=== PATIENT | female | born 1995 | race Caucasian/White ===

== ENCOUNTER 2016-11-28 20:02 | Emergency (ER) | payer MEDICAID ==
[~2016-11-28 20:02] MED LIST: ABILIFY15 MG PO; ABILIFY20 MG; ALLERGY MEDICATION; COMPAZINE10 MG PO; DEPO-PROVE150 MG/11 IM; DEPO-PROVER150 MG/ML IM; FISH OIL 11000 MG/CA PO; FLONASE16 G2 NS; HYDROCODON-ACE1 EA16 PO; IRON325 MG PO; KEFLEX500 MG PO; LAMICTAL25 MG; MOTRIN600 MG PO; NORCO 5-325 TA1 EACH PO; QVAR7.3 G IH; SERTRALINE HCL100 MG PO; TAMIFLU75 MG/CAP PO; TRILEPTAL300 M1 PO; VENTOLIN HFA18 G1 IH; WELLBUTRIN SR150 MG; WELLBUTRIN XL300 MG
[2016-11-28] MEDS ORDERED: VENTOLIN HFA18 G2 PO (20:21)
[2016-11-28] MEDS ORDERED: DEPO-PROVE150 MG/1 M IM (20:22)
[2016-11-28 20:50] LABS: BASO % 0.3 % (0-2); EOS % 0.8 % (0-7); EOSINOPHIL ABSOLUTE COUNT 0.1 tho/cmm (0.0-0.7); HCT-HEMATOCRIT 31.4 % (34.0-49.0); HGB-HEMOGLOBIN 9.8 gm/dl (12.0-15.5); IMMATURE GRANULOCYTES ABSOLUTE 0.01 tho/cmm (0-0.03); IMMATURE GRANULOCYTES PERCENT 0.2 % (0-0.3); LYMPH % 42.1 % (20-45); LYMPH ABSOLUTE COUNT 2.7 tho/cmm (0.8-4.5); MCH (MEAN CORPUSCULAR HGB) 22.4 pg (28.0-32.0); MCHC MEAN CORPUSCULAR HGB CONC 31.2 % (32.0-36.0); MCV (MEAN CELL VOLUME) 71.9 fl (82.0-96.0); MEAN PLATELET VOLUME 10.3 cmc (9.4-12.4); MONO % 10.5 % (0-12); MONOCYTE ABSOLUTE COUNT 0.7 tho/cmm (0.0-1.2); NEUTROPHILS % 46.1 % (40-80); PLATELET COUNT 293 tho/cmm (150-450); RED BLOOD COUNT 4.37 mil/cmm (4.00-5.20); RED CELL DISTRIBUTION WIDTH 16.8 % (12.4-16.4); WHITE BLOOD COUNT 6.4 tho/cmm (4.0-10.0)
[2016-11-28 21:01] LABS: ANION GAP 11 mmol/L (0-20); BLOOD UREA NITROGEN 9 mg/dl (6-24); CALCIUM 8.4 mg/dl (8.5-10.5); CARBON DIOXIDE-VENOUS 26 mmol/L (22-32); CHLORIDE 107 mmol/l (96-110); CREATININE 0.67 mg/dl (0.50-1.10); GLUCOSE 81 mg/dL (70-110); POTASSIUM 3.7 mmol/L (3.7-5.1); SODIUM 140 mmol/L (135-145); eGFR VALUE FOR BLACK >90 mL/Min
== END 2016-11-28 21:54 ==
LOC: EDMED 20:02
PROVIDERS: Emergency Medicine
DX: R00.2 Palpitations (principal); F43.10 Post-traumatic stress disorder, unspecified